=== PATIENT | female | born 1985 | race African-American/Black ===

== ENCOUNTER 2020-06-20 19:01 | Emergency (ER) | payer BC ==
[~2020-06-20] VITALS: Ht 182.9 cm; Wt 91.0 kg
[~2020-06-20 19:01] MED LIST: ALBU90AE INH; APIX5TAB MT; FAMO-135 PO; P20 PO; TOPUD PO
[2020-06-20] MEDS ORDERED: KETOROLAC 60MG/2ML VIAL IM ONE (21:30)
[2020-06-21 01:15] LABS: HEMATOCRIT. 38.1 % (36.0-48.0); HEMOGLOBIN. 12.6 g/dL (12.0-16.0); LYMPHOCYTES % 58.9 % (20.0-50.0); MEAN CORPUSCULAR HEMOGLOBIN 29.2 pg (28.0-32.0); MEAN CORPUSCULAR VOLUME 88.1 fL (81.0-99.0); MEAN PLATELET VOLUME 9.2 fl (7.4-10.4); MONOCYTES % 5.9 % (2.0-8.0); NEUTROPHILS % 33.2 % (40.0-76.0); PLATELET 78 x1000/uL (130-400); RED BLOOD CELL COUNT 4.33 mill/uL (4.2-5.4); RED CELL DISTRIBUTION WIDTH 16.2 % (11.6-14.6)
[2020-06-21 01:18] LABS: CHLORIDE 102 mEq/L (98-107)
[2020-06-21] MEDS ORDERED: IOHEXOL-300 100 ML BOTTLE ONE (02:37)
[2020-06-21 03:41] VITALS: BP 152/103
== END 2020-06-21 03:42 | disposition home or self-care (01) ==
LOC: ER 19:01
DX: K64.8 Other hemorrhoids (principal); F17.210 Nicotine dependence, cigarettes, uncomplicated; Z98.84 Bariatric surgery status
CPT/HCPCS: 36415; 74177; 80048; 81025; 85025; 93005; 96372; 99285; J1885; Q9967

== ENCOUNTER 2020-11-09 16:51 | Inpatient (IN) | payer BC ==
[~2020-11-09] VITALS: Ht 167.6 cm; Wt 100.2 kg
[2020-11-09] MEDS ORDERED: SODIUM CHLORIDE 0.9% 1000ML BAG (SEPSIS BOLUS) IV ONE (17:15)
[2020-11-09] MEDS ORDERED: CEFTRIAXONE 1 G PREMIX 50 ML IV ONE (17:15)
[2020-11-09] MEDS ORDERED: HALOPERIDOL LACTATE 5MG/ML VIAL IM ONE (18:00)
[2020-11-09 18:01] LABS: HEMATOCRIT. 24.5 % (36.0-48.0); HEMOGLOBIN. 8.4 g/dL (12.0-16.0); MEAN CORPUSCULAR HEMOGLOBIN 29.1 pg (28.0-32.0); MEAN CORPUSCULAR VOLUME 85.1 fL (81.0-99.0); RED BLOOD CELL COUNT 2.87 mill/uL (4.2-5.4); RED CELL DISTRIBUTION WIDTH 18.4 % (11.6-14.6)
[2020-11-09 18:13] LABS: CHLORIDE 108 mEq/L (98-107)
[2020-11-09 18:19] LABS: HCG SCREEN NEGATIVE
[2020-11-09 18:24] LABS: CLARITY URINE CLOUDY (CLEAR); COLOR URINE DARK YELLOW (YELLOW); KETONES URINE TRACE (NEGATIVE); LEUKOCYTE ESTERASE URINE TRACE (NEGATIVE); NITRITE URINE NEGATIVE (NEGATIVE); OCCULT BLOOD URINE NEGATIVE (NEGATIVE); PROTEIN URINE 1+ (NEGATIVE); SPECIFIC GRAVITY URINE 1.024 (1.005-1.030)
[2020-11-09] MEDS ORDERED: INSULIN REGULAR (HUMULIN R) 300UNITS/3ML VIAL IV ONE (18:30)
[2020-11-09] MEDS ORDERED: DEXTROSE 50% WATER 50ML SYRINGE IV ONE ×2 (18:30→23:00)
[2020-11-09] MEDS ORDERED: SODIUM BICARBONATE 8.4% 1 MEQ/ML 50ML SYR IV ONE (18:30)
[2020-11-09] MEDS ORDERED: LORAZEPAM 2MG/ML CPJ IV ONE (18:45)
[2020-11-09] MEDS ORDERED: DIPHENHYDRAMINE 50MG/ML VIAL IV ONE (18:45)
[2020-11-09 18:47] LABS: PLATELET ESTIMATE DECREASED
[2020-11-09 18:52] LABS: MEAN PLATELET VOLUME 9.2 fl (7.4-10.4); PLATELET 112 x1000/uL (130-400)
[2020-11-09 23:09] LABS: HEMOGLOBIN. 8.7 g/dL (12.0-16.0); MEAN CORPUSCULAR HEMOGLOBIN 29.1 pg (28.0-32.0); MEAN CORPUSCULAR VOLUME 86.6 fL (81.0-99.0); RED CELL DISTRIBUTION WIDTH 17.9 % (11.6-14.6)
[2020-11-10] VITALS (53 sets, daily range): BP systolic 74–146; BP diastolic 32–95
[2020-11-10] MEDS: SODIUM BICARBONATE 50 MEQ in DEXT 5%/0.45% NACL 1000ML 1,000 ML IV SCH ×2 (03:07→21:40)
[2020-11-10 05:25] LABS: MEAN PLATELET VOLUME 8.9 fl (7.4-10.4); PLATELET 85 x1000/uL (130-400)
[2020-11-10 05:45] LABS: PLATELET ESTIMATE DECREASED
[2020-11-10 05:46] LABS: BASOPHILS % 0.1 % (0.0-2.0); EOSINOPHILS % 4.2 % (0.0-5.0); LYMPHOCYTES % 19.3 % (20.0-50.0); MEAN CORPUSCULAR HEMOGLOBIN 28.1 pg (28.0-32.0); MEAN CORPUSCULAR VOLUME 84.2 fL (81.0-99.0); MONOCYTES % 6.9 % (2.0-8.0); NEUTROPHILS % 69.5 % (40.0-76.0); RED BLOOD CELL COUNT 2.84 mill/uL (4.2-5.4); RED CELL DISTRIBUTION WIDTH 17.9 % (11.6-14.6)
[2020-11-10 05:52] LABS: INR 2.8; PROTHROMBIN TIME 27.8 sec (9.6-11.0)
[2020-11-10] MEDS: PANTOPRAZOLE SODIUM 40 MG/VIAL IV SCH (07:56)
[2020-11-10] MEDS: LACTULOSE 20G/30ML UDC PO SCH ×3 (07:56→21:37)
[2020-11-10] MEDS ORDERED: CEFTRIAXONE 1 G PREMIX 50 ML IV SCH (09:00)
[2020-11-10] MEDS ORDERED: PHYTONADIONE 10MG/ML AMP SUBCUT NR (11:00)
[2020-11-10 12:21] LABS: BG BASE EXCESS -8.8 mmol/L (-2.0-2.0); BG CARBOXYHEMOGLOBIN 0.3 % (0.5-1.5); BG DEOXYHEMOGLOBIN 3.3 % (0.0-5.0); BG FRACTION INSPIRED OXYGEN 36; BG HCO3 ACT 15.2 mmol/L (22.0-26.0); BG METHEMOGLOBIN 0.8 % (0.0-1.5); BG OXYGEN SATURATION 96.7 % (92.0-98.5); BG OXYHEMOGLOBIN 95.6 % (94.0-97.0); BG PCO2 26.2 mmHg (35.0-45.0); BG PH 7.381 (7.350-7.450); BG PO2 102.8 mmHg (75.0-100.0); BG SAMPLE SITE RIGHT BRACHIAL; BG TOTAL HEMOGLOBIN 8.2 g/dL (12.0-18.0); BG VENT MODE NASAL CANNULA
[2020-11-10] MEDS ORDERED: LORAZEPAM 2MG/ML CPJ IM PRN (12:30)
[2020-11-10 13:46] LABS: PLATELET 82 x1000/uL (130-400)
[2020-11-10 13:47] LABS: MEAN PLATELET VOLUME 8.8 fl (7.4-10.4)
[2020-11-10] MEDS: FOLIC ACID 1MG TABLET PO SCH (14:12)
[2020-11-10] MEDS: MULTIVITAMINS,THER W-MINERALS TABLET NG SCH (14:12)
[2020-11-10] MEDS: THIAMINE HCL 100MG TABLET PO SCH (14:13)
[2020-11-10 14:45] LABS: *AMPHETAMINES SCREEN URINE NEGATIVE (NEGATIVE); *BARBITURATES SCREEN URINE NEGATIVE (NEGATIVE); *BENZODIAZEPINES SCREEN URINE NEGATIVE (NEGATIVE); *COCAINE SCREEN URINE NEGATIVE (NEGATIVE)
[2020-11-10 14:46] LABS: CANNABINOID URINE SCREEN NEGATIVE (NEGATIVE); METHADONE URINE SCREEN NEGATIVE (NEGATIVE); OPIATES URINE SCREEN NEGATIVE (NEGATIVE); PHENCYCLIDINE URINE SCREEN NEGATIVE (NEGATIVE)
[2020-11-10] MEDS ORDERED: DILTIAZEM HCL 5MG/ML 5ML VIAL IV NR (15:00)
[2020-11-10] MEDS ORDERED: DEXTROSE 50% WATER 50ML SYRINGE IV PRN (15:00)
[2020-11-10] MEDS ORDERED: IPRATROPIUM/ALBUTEROL 0.5-3(2.5)MG/3ML NEB HHN PRN (15:00)
[2020-11-10] MEDS ORDERED: ONDANSETRON HCL 4MG/2ML INJ IV PRN (15:00)
[2020-11-10] MEDS ORDERED: BISACODYL 10MG SUPP PR PRN (15:00)
[2020-11-10] MEDS ORDERED: ACETAMINOPHEN 325MG TABLET PO PRN (15:00)
[2020-11-10] MEDS ORDERED: ACETAMINOPHEN 650MG SUPP PR PRN (15:00)
[2020-11-10] MEDS: BLOOD SUGAR DIAGNOSTIC STRIP TEST SCH ×2 (15:42→20:55)
[2020-11-10 16:35] LABS: INR 2.6; PROTHROMBIN TIME 26.3 sec (9.6-11.0)
[2020-11-10 16:42] LABS: TOTAL IRON BINDING CAPACITY 65 ug/dL (250-450)
[2020-11-10 16:50] LABS: HCG SCREEN NEGATIVE
[2020-11-10] MEDS ORDERED: VANCOMYCIN 2,000 MG in DEXT 5% WATER 500 ML IV NR (17:00)
[2020-11-10 17:03] LABS: CREATINE KINASE MB FRACTION 6.2 ng/mL (0.5-3.6)
[2020-11-10 17:05] LABS: FERRITIN 1016 ng/mL (10-291)
[2020-11-10 17:20] LABS: VITAMIN B12 SERUM > 2000.0 pg/mL (211-911)
[2020-11-10] MEDS: PIPERACILLIN/TAZOBACTAM 2.25 G in DEXTROSE 5% WATER 50 ML IV SCH (17:52)
[2020-11-10] MEDS ORDERED: CEFTRIAXONE 1,000 MG in DEXTROSE 5% WATER 50 ML IV SCH (18:00)
[2020-11-10] MEDS ORDERED: LORAZEPAM 2MG/ML CPJ IV PRN (18:30)
[2020-11-10] MEDS: RIFAXIMIN 550 MG TABLET PO SCH (20:54)
[2020-11-10] MEDS: METOPROLOL TARTRATE 25MG TABLET PO SCH (20:55)
[2020-11-11] VITALS (98 sets, daily range): BP systolic 90–129; BP diastolic 7–94
[2020-11-11] MEDS: PIPERACILLIN/TAZOBACTAM 2.25 G in DEXTROSE 5% WATER 50 ML IV SCH ×3 (02:31→17:49)
[2020-11-11] MEDS: BLOOD SUGAR DIAGNOSTIC STRIP TEST SCH ×4 (03:28→21:15)
[2020-11-11 04:58] LABS: BASOPHILS % 0.1 % (0.0-2.0); EOSINOPHILS % 0.4 % (0.0-5.0); HEMOGLOBIN. 8.8 g/dL (12.0-16.0); LYMPHOCYTES % 17.8 % (20.0-50.0); MEAN CORPUSCULAR HEMOGLOBIN 28.4 pg (28.0-32.0); MEAN CORPUSCULAR VOLUME 84.3 fL (81.0-99.0); MEAN PLATELET VOLUME 9.1 fl (7.4-10.4); MONOCYTES % 5.6 % (2.0-8.0); NEUTROPHILS % 76.1 % (40.0-76.0); PLATELET 81 x1000/uL (130-400); RED BLOOD CELL COUNT 3.08 mill/uL (4.2-5.4)
[2020-11-11 05:07] LABS: INR 2.6; PROTHROMBIN TIME 26.2 sec (9.6-11.0)
[2020-11-11 05:37] LABS: HEPATITIS B SURFACE ANTIGEN NEGATIVE
[2020-11-11 06:07] LABS: HEPATITIS A AB IGM NEGATIVE (NEGATIVE)
[2020-11-11] MEDS: LACTULOSE 20G/30ML UDC PO SCH ×3 (06:33→20:23)
[2020-11-11] MEDS: METOPROLOL TARTRATE 25MG TABLET PO SCH ×2 (09:00→21:21)
[2020-11-11 09:58] LABS: BG BASE EXCESS -5.3 mmol/L (-2.0-2.0); BG CARBOXYHEMOGLOBIN 0.3 % (0.5-1.5); BG DEOXYHEMOGLOBIN 2.7 % (0.0-5.0); BG FRACTION INSPIRED OXYGEN 28; BG HCO3 ACT 18.2 mmol/L (22.0-26.0); BG METHEMOGLOBIN 0.7 % (0.0-1.5); BG OXYGEN SATURATION 97.3 % (92.0-98.5); BG OXYHEMOGLOBIN 96.3 % (94.0-97.0); BG PCO2 28.1 mmHg (35.0-45.0); BG PO2 110.4 mmHg (75.0-100.0); BG SAMPLE SITE LEFT RADIAL; BG TOTAL HEMOGLOBIN 8.3 g/dL (12.0-18.0); BG VENT MODE NASAL CANNULA
[2020-11-11] MEDS: MULTIVITAMINS,THER W-MINERALS TABLET NG SCH (10:31)
[2020-11-11] MEDS: RIFAXIMIN 550 MG TABLET PO SCH ×2 (10:31→21:21)
[2020-11-11] MEDS: PANTOPRAZOLE SODIUM 40 MG/VIAL IV SCH (10:31)
[2020-11-11] MEDS: THIAMINE HCL 100MG TABLET PO SCH (10:32)
[2020-11-11] MEDS: FOLIC ACID 1MG TABLET PO SCH (10:32)
[2020-11-11] MEDS: PHYTONADIONE 10MG/ML AMP SUBCUT SCH (10:38)
[2020-11-11] MEDS: SODIUM BICARBONATE 50 MEQ in DEXT 5%/0.45% NACL 1000ML 1,000 ML IV SCH (13:51)
[2020-11-11] MEDS: MIDODRINE HCL 5MG TABLET PO SCH (17:48)
[2020-11-11] MEDS: ALBUMIN HUMAN 12.5GM/50ML (25%) IV SCH (17:49)
[2020-11-11 18:22] LABS: INR 2.8; PROTHROMBIN TIME 27.3 sec (9.6-11.0)
[2020-11-11] MEDS: OCTREOTIDE ACETATE 50 MCG/ML 1ML SUBCUT SCH (21:21)
[2020-11-12] VITALS (100 sets, daily range): BP systolic 78–151; BP diastolic 33–104
[2020-11-12] MEDS: LACTULOSE 20G/30ML UDC PO SCH ×4 (00:43→18:17)
[2020-11-12] MEDS: PIPERACILLIN/TAZOBACTAM 2.25 G in DEXTROSE 5% WATER 50 ML IV SCH ×3 (02:11→18:17)
[2020-11-12] MEDS: BLOOD SUGAR DIAGNOSTIC STRIP TEST SCH ×4 (03:43→21:00)
[2020-11-12 05:56] LABS: BASOPHILS % 0.3 % (0.0-2.0); EOSINOPHILS % 0.5 % (0.0-5.0); HEMATOCRIT. 23.7 % (36.0-48.0); LYMPHOCYTES % 13.3 % (20.0-50.0); MEAN CORPUSCULAR HEMOGLOBIN 28.6 pg (28.0-32.0); MEAN CORPUSCULAR VOLUME 84.4 fL (81.0-99.0); MEAN PLATELET VOLUME 9.9 fl (7.4-10.4); MONOCYTES % 4.2 % (2.0-8.0); NEUTROPHILS % 81.7 % (40.0-76.0); PLATELET 67 x1000/uL (130-400); RED BLOOD CELL COUNT 2.81 mill/uL (4.2-5.4); RED CELL DISTRIBUTION WIDTH 17.9 % (11.6-14.6)
[2020-11-12 06:00] LABS: INR 2.4; PROTHROMBIN TIME 23.7 sec (9.6-11.0)
[2020-11-12] MEDS: OCTREOTIDE ACETATE 50 MCG/ML 1ML SUBCUT SCH ×3 (06:27→22:27)
[2020-11-12] MEDS: SODIUM BICARBONATE 50 MEQ in DEXT 5%/0.45% NACL 1000ML 1,000 ML IV SCH (06:27)
[2020-11-12] MEDS: ALBUMIN HUMAN 12.5GM/50ML (25%) IV SCH ×2 (08:34→12:18)
[2020-11-12] MEDS: MULTIVITAMINS,THER W-MINERALS TABLET NG SCH (08:35)
[2020-11-12] MEDS: THIAMINE HCL 100MG TABLET PO SCH (08:35)
[2020-11-12] MEDS: RIFAXIMIN 550 MG TABLET PO SCH ×2 (08:35→22:27)
[2020-11-12] MEDS: FOLIC ACID 1MG TABLET PO SCH (08:35)
[2020-11-12] MEDS: PANTOPRAZOLE SODIUM 40 MG/VIAL IV SCH (08:35)
[2020-11-12] MEDS: PHYTONADIONE 10MG/ML AMP SUBCUT SCH (08:36)
[2020-11-12] MEDS: MIDODRINE HCL 5MG TABLET PO SCH ×3 (09:00→17:00)
[2020-11-12] MEDS: METOPROLOL TARTRATE 25MG TABLET PO SCH ×2 (09:26→22:26)
[2020-11-12] MEDS ORDERED: LACTULOSE 20G/30ML UDC PO SCH (12:00)
[2020-11-12] MEDS ORDERED: VANCOMYCIN 750 MG PREMIX 150 ML IV SCH (12:00)
[2020-11-13] VITALS (87 sets, daily range): BP systolic 112–146; BP diastolic 62–106
[2020-11-13 00:10] LABS: INR 2.2; PROTHROMBIN TIME 22.2 sec (9.6-11.0)
[2020-11-13] MEDS: LACTULOSE 20G/30ML UDC PO SCH ×4 (00:40→17:33)
[2020-11-13] MEDS: PIPERACILLIN/TAZOBACTAM 2.25 G in DEXTROSE 5% WATER 50 ML IV SCH ×3 (02:21→17:36)
[2020-11-13] MEDS: BLOOD SUGAR DIAGNOSTIC STRIP TEST SCH ×3 (03:28→14:07)
[2020-11-13 05:28] LABS: BASOPHILS % 0.3 % (0.0-2.0); EOSINOPHILS % 0.2 % (0.0-5.0); HEMATOCRIT. 26.2 % (36.0-48.0); HEMOGLOBIN. 8.6 g/dL (12.0-16.0); LYMPHOCYTES % 12.8 % (20.0-50.0); MEAN CORPUSCULAR HEMOGLOBIN 28.1 pg (28.0-32.0); MEAN CORPUSCULAR VOLUME 85.5 fL (81.0-99.0); MEAN PLATELET VOLUME 9.7 fl (7.4-10.4); MONOCYTES % 6.9 % (2.0-8.0); NEUTROPHILS % 79.8 % (40.0-76.0); PLATELET 66 x1000/uL (130-400); RED BLOOD CELL COUNT 3.06 mill/uL (4.2-5.4)
[2020-11-13] MEDS: OCTREOTIDE ACETATE 50 MCG/ML 1ML SUBCUT SCH ×3 (06:14→21:46)
[2020-11-13] MEDS: PANTOPRAZOLE SODIUM 40 MG/VIAL IV SCH (08:17)
[2020-11-13] MEDS: RIFAXIMIN 550 MG TABLET PO SCH ×2 (08:18→21:38)
[2020-11-13] MEDS: MULTIVITAMINS,THER W-MINERALS TABLET NG SCH (08:18)
[2020-11-13] MEDS: MIDODRINE HCL 5MG TABLET PO SCH ×3 (08:18→17:00)
[2020-11-13] MEDS: FOLIC ACID 1MG TABLET PO SCH (08:18)
[2020-11-13] MEDS: PHYTONADIONE 10MG/ML AMP SUBCUT SCH (08:18)
[2020-11-13] MEDS: METOPROLOL TARTRATE 25MG TABLET PO SCH ×2 (08:19→21:38)
[2020-11-13] MEDS: THIAMINE HCL 100MG TABLET PO SCH (08:20)
[2020-11-13 10:19] LABS: PROTHROMBIN TIME 20.6 sec (9.6-11.0)
[2020-11-13] MEDS: SODIUM BICARBONATE 50 MEQ in DEXT 5%/0.45% NACL 1000ML 1,000 ML IV SCH (11:32)
[2020-11-13] MEDS ORDERED: LIDOCAINE HCL 1% 20ML VIAL (Pyxis) INJ ONE (12:16)
[2020-11-13] MEDS ORDERED: SODIUM BICARBONATE 4% (2.4MEQ) 5ML VIAL IV ONE (12:17)
[2020-11-13 21:11] LABS: HEMOGLOBIN 8.4 g/dL (12.0-16.0)
[2020-11-14] VITALS (69 sets, daily range): BP systolic 92–127; BP diastolic 12–84
[2020-11-14] MEDS: LACTULOSE 20G/30ML UDC PO SCH ×4 (00:33→22:03)
[2020-11-14] MEDS: PIPERACILLIN/TAZOBACTAM 2.25 G in DEXTROSE 5% WATER 50 ML IV SCH ×4 (02:13→22:03)
[2020-11-14] MEDS: OCTREOTIDE ACETATE 50 MCG/ML 1ML SUBCUT SCH ×2 (05:13→22:04)
[2020-11-14 06:02] LABS: INR 2.1; PROTHROMBIN TIME 20.9 sec (9.6-11.0)
[2020-11-14 06:02] LABS: BASOPHILS % 0.2 % (0.0-2.0); EOSINOPHILS % 0.5 % (0.0-5.0); HEMATOCRIT. 21.9 % (36.0-48.0); HEMOGLOBIN. 7.3 g/dL (12.0-16.0); MEAN CORPUSCULAR VOLUME 84.1 fL (81.0-99.0); MEAN PLATELET VOLUME 10.1 fl (7.4-10.4); MONOCYTES % 7.1 % (2.0-8.0); NEUTROPHILS % 79.2 % (40.0-76.0); PLATELET 76 x1000/uL (130-400); RED BLOOD CELL COUNT 2.61 mill/uL (4.2-5.4); RED CELL DISTRIBUTION WIDTH 17.6 % (11.6-14.6)
[2020-11-14] MEDS: MIDODRINE HCL 5MG TABLET PO SCH ×3 (09:29→18:09)
[2020-11-14] MEDS: METOPROLOL TARTRATE 25MG TABLET PO SCH ×2 (09:29→22:03)
[2020-11-14] MEDS: PANTOPRAZOLE SODIUM 40 MG/VIAL IV SCH (09:29)
[2020-11-14] MEDS: FOLIC ACID 1MG TABLET PO SCH (09:29)
[2020-11-14] MEDS: RIFAXIMIN 550 MG TABLET PO SCH (09:29)
[2020-11-14] MEDS: THIAMINE HCL 100MG TABLET PO SCH (09:29)
[2020-11-14] MEDS: MULTIVITAMINS,THER W-MINERALS TABLET NG SCH (09:29)
[2020-11-14] MEDS ORDERED: POTASSIUM CHLORIDE 20MEQ/PACKET PO NR (09:45)
[2020-11-14] MEDS: SODIUM BICARBONATE 50 MEQ in DEXT 5%/0.45% NACL 1000ML 1,000 ML IV SCH (10:32)
[2020-11-14] MEDS ORDERED: VANCOMYCIN 500 MG PREMIX 100 ML IV NR (11:30)
[2020-11-14] MEDS ORDERED: PHYTONADIONE 10MG/ML AMP SUBCUT NR (12:00)
[2020-11-14] MEDS ORDERED: LACTULOSE 20G/30ML UDC ONE (15:59)
[2020-11-14] MEDS: DEXT 5%/0.45% NACL 1000ML 1,000 ML IV SCH (18:08)
[2020-11-15] VITALS (17 sets, daily range): BP systolic 104–146; BP diastolic 54–92
[2020-11-15] MEDS: PIPERACILLIN/TAZOBACTAM 2.25 G in DEXTROSE 5% WATER 50 ML IV SCH ×4 (03:07→22:23)
[2020-11-15] MEDS: LACTULOSE 20G/30ML UDC PO SCH ×3 (05:51→22:24)
[2020-11-15] MEDS: OCTREOTIDE ACETATE 50 MCG/ML 1ML SUBCUT SCH ×2 (05:51→17:11)
[2020-11-15 07:08] LABS: BASOPHILS % 0.4 % (0.0-2.0); EOSINOPHILS % 0.1 % (0.0-5.0); INR 1.7; LYMPHOCYTES % 17.1 % (20.0-50.0); MEAN CORPUSCULAR HEMOGLOBIN 28.1 pg (28.0-32.0); MEAN PLATELET VOLUME 10.3 fl (7.4-10.4); MONOCYTES % 9.4 % (2.0-8.0); PLATELET 79 x1000/uL (130-400); PROTHROMBIN TIME 17.8 sec (9.6-11.0); RED BLOOD CELL COUNT 2.38 mill/uL (4.2-5.4); RED CELL DISTRIBUTION WIDTH 17.5 % (11.6-14.6)
[2020-11-15 07:13] LABS: CHLORIDE 113 mEq/L (98-107)
[2020-11-15 07:33] LABS: HEMATOCRIT. 19.7 % (36.0-48.0); HEMOGLOBIN. 6.7 g/dL (12.0-16.0)
[2020-11-15] MEDS ORDERED: POTASSIUM CHLORIDE 20MEQ/PACKET PO SCH (08:15)
[2020-11-15] MEDS: METOPROLOL TARTRATE 25MG TABLET PO SCH (09:00)
[2020-11-15] MEDS: MIDODRINE HCL 5MG TABLET PO SCH ×3 (09:00→16:50)
[2020-11-15] MEDS: MULTIVITAMINS,THER W-MINERALS TABLET NG SCH (10:54)
[2020-11-15] MEDS: FOLIC ACID 1MG TABLET PO SCH (10:54)
[2020-11-15] MEDS: THIAMINE HCL 100MG TABLET PO SCH (10:54)
[2020-11-15] MEDS: PANTOPRAZOLE SODIUM 40 MG/VIAL IV SCH (10:55)
[2020-11-15] MEDS: POTASSIUM CHLORIDE 20MEQ/PACKET PO SCH (11:30)
[2020-11-15] MEDS: DEXT 5%/0.45% NACL 1000ML 1,000 ML IV SCH (17:11)
[2020-11-15] MEDS ORDERED: MORPHINE SULFATE 2 MG/ML CPJ (NOT FOR IM USE) IV PRN (17:15)
[2020-11-15] MEDS ORDERED: METOPROLOL TARTRATE 50MG TABLET PO NR (20:30)
[2020-11-15 20:51] LABS: BASOPHILS % 0.5 % (0.0-2.0); EOSINOPHILS % 1.3 % (0.0-5.0); HEMATOCRIT. 22.4 % (36.0-48.0); HEMOGLOBIN. 7.7 g/dL (12.0-16.0); LYMPHOCYTES % 14.8 % (20.0-50.0); MEAN CORPUSCULAR HEMOGLOBIN 28.3 pg (28.0-32.0); MEAN CORPUSCULAR VOLUME 82.9 fL (81.0-99.0); MONOCYTES % 10.4 % (2.0-8.0); RED BLOOD CELL COUNT 2.71 mill/uL (4.2-5.4); RED CELL DISTRIBUTION WIDTH 16.8 % (11.6-14.6)
[2020-11-15 22:16] LABS: MEAN PLATELET VOLUME 9.9 fl (7.4-10.4)
[2020-11-15 22:17] LABS: PLATELET 94 x1000/uL (130-400)
[2020-11-16] VITALS (13 sets, daily range): BP systolic 100–124; BP diastolic 59–84
[2020-11-16] MEDS: OCTREOTIDE ACETATE 50 MCG/ML 1ML SUBCUT SCH ×4 (00:58→20:40)
[2020-11-16] MEDS: PIPERACILLIN/TAZOBACTAM 2.25 G in DEXTROSE 5% WATER 50 ML IV SCH ×4 (03:11→20:40)
[2020-11-16] MEDS: LACTULOSE 20G/30ML UDC PO SCH ×3 (05:35→20:38)
[2020-11-16 06:49] LABS: INR 1.7; PROTHROMBIN TIME 17.6 sec (9.6-11.0)
[2020-11-16 06:56] LABS: CHLORIDE 111 mEq/L (98-107)
[2020-11-16 06:59] LABS: HEMATOCRIT. 21.1 % (36.0-48.0); HEMOGLOBIN. 7.4 g/dL (12.0-16.0); MEAN CORPUSCULAR HEMOGLOBIN 28.7 pg (28.0-32.0); MEAN CORPUSCULAR VOLUME 82.4 fL (81.0-99.0); RED BLOOD CELL COUNT 2.56 mill/uL (4.2-5.4); RED CELL DISTRIBUTION WIDTH 16.7 % (11.6-14.6)
[2020-11-16] MEDS: MIDODRINE HCL 5MG TABLET PO SCH ×3 (09:00→17:00)
[2020-11-16] MEDS: PANTOPRAZOLE SODIUM 40 MG/VIAL IV SCH (09:25)
[2020-11-16] MEDS: MULTIVITAMINS,THER W-MINERALS TABLET NG SCH (09:26)
[2020-11-16] MEDS: FOLIC ACID 1MG TABLET PO SCH (09:27)
[2020-11-16] MEDS: METOPROLOL TARTRATE 50MG TABLET PO SCH ×2 (09:27→20:38)
[2020-11-16] MEDS: THIAMINE HCL 100MG TABLET PO SCH (09:39)
[2020-11-16 11:00] LABS: CHLORIDE 110 mEq/L (98-107); HEMATOCRIT. 21.2 % (36.0-48.0); HEMOGLOBIN. 7.2 g/dL (12.0-16.0); MEAN CORPUSCULAR HEMOGLOBIN 28.5 pg (28.0-32.0); MEAN CORPUSCULAR VOLUME 83.9 fL (81.0-99.0); RED BLOOD CELL COUNT 2.53 mill/uL (4.2-5.4); RED CELL DISTRIBUTION WIDTH 17.5 % (11.6-14.6)
[2020-11-16] MEDS ORDERED: PHYTONADIONE 10MG/ML AMP SUBCUT NR (11:00)
[2020-11-16 11:05] LABS: INR 1.8; PROTHROMBIN TIME 18.2 sec (9.6-11.0)
[2020-11-16] MEDS: POTASSIUM CHLORIDE 20MEQ/PACKET PO SCH (12:00)
[2020-11-16 12:11] LABS: PLATELET 83 x1000/uL (130-400)
[2020-11-16 12:14] LABS: PLATELET ESTIMATE DECREASED
[2020-11-16] MEDS ORDERED: LIDOCAINE HCL 1% 20ML VIAL (Pyxis) INJ ONE (12:18)
[2020-11-16] MEDS ORDERED: SODIUM BICARBONATE 4% (2.4MEQ) 5ML VIAL IV ONE (12:18)
[2020-11-16 12:20] LABS: ATYPICAL LYMPHOCYTES 1
[2020-11-16 12:22] LABS: PLATELET ESTIMATE DECREASED
[2020-11-16 12:25] LABS: PLATELET 83 x1000/uL (130-400)
[2020-11-16] MEDS ORDERED: MIDAZOLAM HCL 5 MG/5 ML VIAL IV PRN (16:17)
[2020-11-16] MEDS ORDERED: MIDAZOLAM HCL 5 MG/5 ML VIAL ONE (16:46)
[2020-11-16] MEDS ORDERED: FENTANYL CITRATE/PF 50MCG/ML 2ML VIAL ONE (16:46)
[2020-11-16] MEDS ORDERED: MIDAZOLAM HCL 2 MG/2 ML VIAL IV PRN (17:00)
[2020-11-16] MEDS: DEXT 5%/0.45% NACL 1000ML 1,000 ML IV SCH (17:30)
[2020-11-17] VITALS (13 sets, daily range): BP systolic 102–112; BP diastolic 63–87
[2020-11-17] MEDS: PIPERACILLIN/TAZOBACTAM 2.25 G in DEXTROSE 5% WATER 50 ML IV SCH ×2 (03:04→09:27)
[2020-11-17] MEDS ORDERED: LACTULOSE 20G/30ML UDC PO PRN (06:00)
[2020-11-17] MEDS: OCTREOTIDE ACETATE 50 MCG/ML 1ML SUBCUT SCH ×3 (06:04→21:22)
[2020-11-17] MEDS: DEXT 5%/0.45% NACL 1000ML 1,000 ML IV SCH (06:06)
[2020-11-17 06:48] LABS: INR 1.7; PROTHROMBIN TIME 17.7 sec (9.6-11.0)
[2020-11-17 07:08] LABS: CHLORIDE 109 mEq/L (98-107)
[2020-11-17 07:15] LABS: HEMATOCRIT. 21.9 % (36.0-48.0); HEMOGLOBIN. 7.5 g/dL (12.0-16.0); MEAN CORPUSCULAR HEMOGLOBIN 28.4 pg (28.0-32.0); MEAN CORPUSCULAR VOLUME 83.1 fL (81.0-99.0); RED BLOOD CELL COUNT 2.63 mill/uL (4.2-5.4); RED CELL DISTRIBUTION WIDTH 17.3 % (11.6-14.6)
[2020-11-17] MEDS: MIDODRINE HCL 5MG TABLET PO SCH ×3 (09:00→16:59)
[2020-11-17] MEDS: THIAMINE HCL 100MG TABLET PO SCH (09:27)
[2020-11-17] MEDS: PANTOPRAZOLE SODIUM 40 MG/VIAL IV SCH (09:27)
[2020-11-17] MEDS: FOLIC ACID 1MG TABLET PO SCH (09:27)
[2020-11-17] MEDS: MULTIVITAMINS,THER W-MINERALS TABLET NG SCH (09:27)
[2020-11-17] MEDS: METOPROLOL TARTRATE 50MG TABLET PO SCH ×2 (09:28→21:00)
[2020-11-17] MEDS: POTASSIUM CHLORIDE 20MEQ/PACKET PO SCH (12:00)
[2020-11-17 14:14] LABS: NUCLEATED RED BLOOD CELLS 1 /100 WBC
[2020-11-17 14:16] LABS: PLATELET ESTIMATE DECREASED
[2020-11-17] MEDS ORDERED: POTASSIUM CHLORIDE 20MEQ/PACKET PO NR (15:15)
[2020-11-18] VITALS: BP 103/65
[2020-11-18 02:00] VITALS: BP 103/66
[2020-11-18] MEDS: OCTREOTIDE ACETATE 50 MCG/ML 1ML SUBCUT SCH ×3 (06:00→21:26)
[2020-11-18 08:00] VITALS: BP 112/75
[2020-11-18] MEDS: PANTOPRAZOLE SODIUM 40 MG/VIAL IV SCH (09:02)
[2020-11-18] MEDS: THIAMINE HCL 100MG TABLET PO SCH (09:03)
[2020-11-18] MEDS: MIDODRINE HCL 5MG TABLET PO SCH ×3 (09:03→18:16)
[2020-11-18] MEDS: FOLIC ACID 1MG TABLET PO SCH (09:03)
[2020-11-18] MEDS: METOPROLOL TARTRATE 50MG TABLET PO SCH ×2 (09:03→21:15)
[2020-11-18] MEDS: MULTIVITAMINS,THER W-MINERALS TABLET NG SCH (09:03)
[2020-11-18 11:16] LABS: HEMATOCRIT. 23.4 % (36.0-48.0); HEMOGLOBIN. 8.1 g/dL (12.0-16.0); MEAN CORPUSCULAR HEMOGLOBIN 29.4 pg (28.0-32.0); MEAN CORPUSCULAR VOLUME 85.4 fL (81.0-99.0); RED BLOOD CELL COUNT 2.74 mill/uL (4.2-5.4); RED CELL DISTRIBUTION WIDTH 17.4 % (11.6-14.6)
[2020-11-18 11:26] LABS: INR 1.6; PROTHROMBIN TIME 16.3 sec (9.6-11.0)
[2020-11-18 11:45] LABS: CHLORIDE 107 mEq/L (98-107)
[2020-11-18 12:00] VITALS: BP 107/76
[2020-11-18 13:45] LABS: PLATELET ESTIMATE SLIGHTLY DECREASED
[2020-11-18 13:47] LABS: PLATELET 114 x1000/uL (130-400)
[2020-11-18 16:00] VITALS: BP 108/71
[2020-11-18 20:00] VITALS: BP 110/67
[2020-11-19] VITALS: BP 108/68
[2020-11-19 04:00] VITALS: BP 101/68
[2020-11-19] MEDS: OCTREOTIDE ACETATE 50 MCG/ML 1ML SUBCUT SCH (05:42)
[2020-11-19 08:00] VITALS: BP 103/67
[2020-11-19] MEDS: MULTIVITAMINS,THER W-MINERALS TABLET NG SCH (09:04)
[2020-11-19] MEDS: PANTOPRAZOLE SODIUM 40 MG/VIAL IV SCH (09:04)
[2020-11-19] MEDS: THIAMINE HCL 100MG TABLET PO SCH (09:04)
[2020-11-19] MEDS: FOLIC ACID 1MG TABLET PO SCH (09:04)
[2020-11-19] MEDS: MIDODRINE HCL 5MG TABLET PO SCH ×2 (09:04→12:58)
[2020-11-19] MEDS: METOPROLOL TARTRATE 50MG TABLET PO SCH (09:05)
[2020-11-19 12:00] VITALS: BP 109/64
[2020-11-19 12:08] VITALS: BP 107/68
== END 2020-11-19 14:50 | disposition home or self-care (01) | DRG 871 ==
LOC: ER 16:51 → MICUSO 22:41 → EDBEDREQ 22:43 → EDBEDREQTM 22:43 → EDBEDREQSVC 22:43 → ENRESERV 23:59 → MICUSO 11-10 02:36 → MICUNO 11-11 00:55 → 5EST 11-14 13:55 → ENRESERV 11-22 00:33
PROVIDERS: ADMIT Internal Medicine; ATTEND Internal Medicine
PROC: 30233K1 Transfusion of Nonautologous Frozen Plasma into Peripheral Vein, Percutaneous Approach (ICD-10-PCS; 2020-11-11)
PROC: 0W9G3ZZ Drainage of Peritoneal Cavity, Percutaneous Approach (ICD-10-PCS; 2020-11-13)
PROC: 30233N1 Transfusion of Nonautologous Red Blood Cells into Peripheral Vein, Percutaneous Approach (ICD-10-PCS; principal; 2020-11-14)
PROC: 05HY33Z Insertion of Infusion Device into Upper Vein, Percutaneous Approach (ICD-10-PCS; 2020-11-14)
PROC: B54MZZA Ultrasonography of Right Upper Extremity Veins, Guidance (ICD-10-PCS; 2020-11-14)
PROC: 4A10X4Z Monitoring of Central Nervous Electrical Activity, External Approach (ICD-10-PCS; 2020-11-14)
PROC: 0W9G3ZZ Drainage of Peritoneal Cavity, Percutaneous Approach (ICD-10-PCS; 2020-11-16)
PROC: 0DJ08ZZ Inspection of Upper Intestinal Tract, Via Natural or Artificial Opening Endoscopic (ICD-10-PCS; 2020-11-16)
DX: A41.9 Sepsis, unspecified organism (principal); E43 Unspecified severe protein-calorie malnutrition; K85.90 Acute pancreatitis without necrosis or infection, unspecified; J69.0 Pneumonitis due to inhalation of food and vomit; G92 Toxic encephalopathy; D68.69 Other thrombophilia; K86.1 Other chronic pancreatitis; N17.9 Acute kidney failure, unspecified; E87.2 Acidosis; I31.3 Pericardial effusion (noninflammatory); K86.2 Cyst of pancreas; K86.3 Pseudocyst of pancreas; Z20.822 Contact with and (suspected) exposure to COVID-19; D69.6 Thrombocytopenia, unspecified; D50.9 Iron deficiency anemia, unspecified; K72.90 Hepatic failure, unspecified without coma; E16.2 Hypoglycemia, unspecified; E87.5 Hyperkalemia; K70.31 Alcoholic cirrhosis of liver with ascites; K76.0 Fatty (change of) liver, not elsewhere classified; Z96.642 Presence of left artificial hip joint; K80.20 Calculus of gallbladder without cholecystitis without obstruction; N18.9 Chronic kidney disease, unspecified; Z78.1 Physical restraint status; Z68.35 Body mass index [BMI] 35.0-35.9, adult; Z98.84 Bariatric surgery status
CPT/HCPCS: 36415; 36600; 49083; 70551; 71045; 74176; 76700; 76705; 76937; 80048; 80053; 80076; 80202; 80305; 81003; 82040; 82140; 82248; 82375; 82550; 82553; 82607; 82728; 82746; 82805; 82962; 83036; 83540; 83550; 83605; 83735; 84145; 84300; 84484; 84703; 85014; 85018; 85025; 85044; 85049; 86705; 86709; 86803; 86850; 86900; 86920; 86927; 87070; 87340; 87426; 92610; 93005; 93306; 93970; 95816; 97162; 97530; 99291; C1725; C9113; J0696; J1200; J1630; J1815; J2060; J2250; J2354; J2543; J3010; J3370; J3430; J3490; J7030; J7040; J7060; P9016; P9017; P9047; U0003; U0005; A4315